=== PATIENT | male | born 1945 | race Caucasian/White ===

== ENCOUNTER 2021-11-11 04:03 | Emergency (ER) | payer MEDICARE ==
[2021-11-11 04:58] LABS: ANION GAP 14.8 mEq/L (7-13); CHLORIDE,CL 105 mmol/L (98-107); SODIUM,NA 141 mmol/L (136-145)
[2021-11-11] MEDS: Ciprofloxacin 500 MG Tab PO ONE (05:35)
== END 2021-11-11 05:50 | disposition home or self-care (01) ==
LOC: DL.ED 04:03
DX: N30.01 Acute cystitis with hematuria (principal); N40.1 Benign prostatic hyperplasia with lower urinary tract symptoms; R33.9 Retention of urine, unspecified; I48.20 Chronic atrial fibrillation, unspecified; Z88.0 Allergy status to penicillin; Z88.2 Allergy status to sulfonamides; Z79.899 Other long term (current) drug therapy; Z79.01 Long term (current) use of anticoagulants
CPT/HCPCS: 36415; 51702; 80053; 81001; 83605; 85025; 87086; 99283; 99284; A9270